=== PATIENT | male | born 1945 | race Caucasian/White ===

== ENCOUNTER 2022-05-05 05:21 | Inpatient (IN) | payer MEDICARE, OTHER ==
[2022-04-25 16:27] LABS: CLARITY,URINE CLEAR (Clear); COLOR,URINE YELLOW (Yellow); GLUCOSE, URINE 250 mg/dl (Neg); KETONES,URINE TRACE mg/dl (Neg); LEUKOCYTE ESTERASE ,URINE NEGATIVE (Neg); NITRITES, URINE NEGATIVE (Neg); OCCULT BLOOD,URINE NEGATIVE (Neg); PROTEIN,URINE NEGATIVE (Neg); UROBILINOGEN,URINE 0.2 E.U/dL (0.2-1.0)
[2022-04-25 16:27] LABS: BASOPHILS # (AUTO) 0.1 X10'3 (0-0.2); BASOPHILS % (AUTO) 1.2 % (0-1); EOSINOPHILS # (AUTO) 0.1 X10'3 (0-0.9); EOSINOPHILS % (AUTO) 1.5 % (0-6); LYMPHOCYTES # (AUTO) 2.6 X10'3 (1.1-4.8); LYMPHOCYTES % (AUTO) 31.9 % (21-51); MEAN CORPUSCULAR HEMOGLOBIN 33.7 PG (27.0-31.0); MEAN CORPUSCULAR HGB CONC 34.6 g/dL (33.0-36.5); MEAN CORPUSCULAR VOLUME 97.3 FL (78-98); MEAN PLATELET VOLUME 8.6 FL (7.4-10.4); MONOCYTES # (AUTO) 0.6 X10'3 (0-0.9); MONOCYTES % (AUTO) 7.8 % (2-12); NEUTROPHILS # (AUTO) 4.7 X10'3 (1.8-7.7); NEUTROPHILS % (AUTO) 57.6 % (42-75); PRE OP HEMATOCRIT 46.3 % (42.0-52.0); PRE OP PLATELET COUNT 211 X10'3 (140-440); RED BLOOD COUNT 4.76 X10'6 (4.70-6.10); RED CELL DISTRIBUTION WIDTH 13.4 % (11.5-14.5)
[2022-04-25 16:30] LABS: ALBUMIN 3.8 G/DL (3.4-5.0); ALBUMIN/GLOBULIN RATIO 0.9 (1.1-1.5); ALKALINE PHOSPHATASE 104 IU/L (46-116); BLOOD UREA NITROGEN 19 MG/DL (7-18); CALCIUM 10.4 MG/DL (8.5-10.1); CHLORIDE 103 MMOL/L (99-107); CREATININE 1.12 MG/DL (0.60-1.10); PRE OP ALT 54 U/L (30-65); PRE OP ANION GAP 10 (8-16); PRE OP AST 38 U/L (10-37); PRE OP BILIRUB, TOTAL 1.3 MG/DL (0.0-1.0); PRE OP GLUCOSE 163 MG/DL (70-104); PRE OP SODIUM 139 MMOL/L (135-145); TOTAL CARBON DIOXIDE 26.4 MMOL/L (24-32); TOTAL PROTEIN 7.9 G/DL (6.4-8.2); eGFR 63 ML/MIN
[2022-04-25 16:33] LABS: PRE OP POTASSIUM 4.1 MMOL/L (3.4-5.1)
[2022-04-25 16:39] LABS: UA COLLECTION TYPE CLN CATCH MIDSTREAM
[2022-05-05] VITALS (34 sets, daily range): BP systolic 105–143; BP diastolic 58–95
[~2022-05-05] VITALS: Ht 182.9 cm; Wt 110.7 kg
[~2022-05-05 05:21] MED LIST: ALOG6.252 PO; APIX5TAB3 PO; CARV-50 PO; CHOL10008 PO; ESCI20TA39 PO; FLO0.4C PO; GINKGO BILOBA PO; LEVO88TA2 PO; LORA10TA7 PO; MAGN400T39 PO; MECL-159 PO; METF500T PO; MULT-1085 PO; OMEG10006 PO; VITA-268 PO; ringers solution, lacted 1,000 ML IV SCH
[2022-05-05] MEDS ORDERED: ceFAZolin inj. 2,000 MG in dextrose 5%-water 100 ML IV ONE (05:30)
[2022-05-05] MEDS ORDERED: famotidine 20mg tablet PO ONE (05:30)
[2022-05-05] MEDS ORDERED: DOCUMENT DATE & TIME OF BETA-BLOCKER PO ONE (05:30)
[2022-05-05] MEDS ORDERED: LIDOcaine 1% (10mg/ml) 2ml vial ONE (05:59)
[2022-05-05] MEDS ORDERED: BUPIVAcaine/PF 2.5 mg/ml (0.25%) 30ml vial ONE (06:36)
[2022-05-05] MEDS ORDERED: bacitracin 15gm ointment TP ONE (06:36)
[2022-05-05] MEDS ORDERED: ROPIVAcaine 0.5% (5mg/ml) 30ml vial ONE (07:04)
[2022-05-05] MEDS ORDERED: fentaNYL/PF 50MCG/1 ML 2ML syringe ONE ×4 (07:08→13:21)
[2022-05-05] MEDS ORDERED: etomidate 2mg/ml inj. ONE ×2 (07:08→07:15)
[2022-05-05] MEDS ORDERED: dexamethasone sod phosphate 10mg/ml inj ONE (07:15)
[2022-05-05] MEDS ORDERED: hydrALAZINE 20mg/ml inj. IV PRN (07:15)
[2022-05-05] MEDS ORDERED: morphine 2 MG/ML inj. syringe IV PRN (07:15)
[2022-05-05] MEDS ORDERED: fentaNYL/PF 50MCG/1 ML 2ML syringe IV PRN ×2 (07:15)
[2022-05-05] MEDS ORDERED: labetalol 20mg/4ml (5mg/ml) syringe IV PRN (07:15)
[2022-05-05] MEDS ORDERED: ringers solution, lacted 1,000 ML IV SCH (07:15)
[2022-05-05] MEDS ORDERED: ondansetron/PF 4mg/2ml inj IV PRN ×2 (07:15→17:00)
[2022-05-05] MEDS ORDERED: morphine 4 MG/ML inj SYRINge IV PRN (07:15)
[2022-05-05] MEDS ORDERED: sevoflurane 250ml liquid IH ONE (07:15)
[2022-05-05] MEDS ORDERED: ondansetron/PF 4mg/2ml inj ONE (07:44)
[2022-05-05] MEDS ORDERED: acetaminophen 1,000mg/100ml IV 100 ML IV ONE (08:22)
--- NOTE | 2022-05-05 12:21 | NUR ---
Received from OR via [facility] IN STABLE CONDITION , accompanied by Anesthesiologist and ETL DATABASE DEVELOPER report given by ETL DATABASE DEVELOPER AND Anesthesiolgist. Addendum: 05/05/22 at 1348 by Minoo Borja RN Amended: Links added.
[2022-05-05] MEDS ORDERED: insulin regular, human 10 units/0.1 ml syringe IV ONE ×2 (12:40→14:00)
[2022-05-05] MEDS ORDERED: insulin regular, human U-100 3ml vial - multi-dose IV ONE (13:50)
--- NOTE | 2022-05-05 15:50 | NUR ---
DR. WELSH NOTIFIED OF PATIENTS BLOOD SUGAR. NO NEW ORDERES. Addendum: 05/05/22 at 1915 by Minoo Borja RN Amended: Links added.
[2022-05-05] MEDS ORDERED: naloxone 0.4 mg/ml inj IV PRN (17:00)
[2022-05-05] MEDS ORDERED: magnesium hydroxide 30ml (MOM) UD suspension PO PRN (17:00)
[2022-05-05] MEDS ORDERED: acetaminophen 325mg tablet PO PRN (17:00)
[2022-05-05] MEDS ORDERED: bisacodyl 10mg suppository rectal RC PRN (17:00)
[2022-05-05] MEDS ORDERED: diphenhydrAMINE 25mg capsule PO PRN ×2 (17:00)
--- NOTE | 2022-05-05 18:31 | NUR ---
PATIENT DISCHARGED FROM PACU IN STABLE CONDITION. PATIENT TRANSFERRED TO ROOM 4009A VIA BED WITH RN X2. BESIDE REPORT GIVEN. Addendum: 05/05/22 at 1908 by Minoo Borja RN Amended: Links added.
[2022-05-05] MEDS: apixaban 5mg tablet PO SCH (20:50)
[2022-05-05] MEDS: sennosides 8.6mg tablet PO SCH (20:50)
[2022-05-05] MEDS: potassium Cl 20mEq in NS 1,000 ML IV SCH (20:51)
[2022-05-05] MEDS ORDERED: dextrose 50%-water 50ml dispensing syringe IV PRN ×2 (21:35)
[2022-05-05] MEDS ORDERED: MESSAGE TO PHARMACY PO ONE (21:35)
[2022-05-05] MEDS ORDERED: glucagon, human recombinant 1mg kit SUBCUT PRN (21:35)
[2022-05-05] MEDS ORDERED: DEXTROSE 15 GM of carb/4 tabs (each vial/BOTTLE has 4 tablets) PO PRN ×2 (21:35)
[2022-05-05] MEDS: insulin Lispro (HumaLOG) vial - multi-dose SQ SCH (22:05)
[2022-05-05] MEDS: insulin glargine (Lantus) pen - multi-dose SQ SCH (22:09)
[2022-05-06] MEDS: ceFAZolin/D5W- 1GM premix 50 ML IV SCH ×2 (00:40→07:44)
[2022-05-06 02:00] VITALS: BP 121/71
[2022-05-06] MEDS: potassium Cl 20mEq in NS 1,000 ML IV SCH ×3 (05:54→17:00)
--- NOTE | 2022-05-06 06:28 | NUR ---
SKIP'D VERBAL REPORT FROM RAE AT PATIENTS BESIDE WHEN HE ARRIVED ON THE UNIT FROM RECOVERY ROOM. FREQUENT VITALS SET UP, RLE ELEVATED ON WEDGE AND ATTEMPTED TO PUT UP THE FOB UP BUT PATIENT ASKED ME TO NOT DO THAT. REPEATEDLY CHECKED ON PATIENT THROUGH OUT THE NIGHT TO CHECK HIS PAIN LEVEL, HAS DENIED ANY PAIN THROUGH THE NIGHT. DID NOT GET MUCH REST THROUGH THE NIGHT BUT CONT'S TO MAINTAIN 'I'M NOT HAVING ANY PAIN" VERBAL REPORT GIVEN TO PAN MILLER
[2022-05-06 07:00] VITALS: BP 121/68
[2022-05-06] MEDS: apixaban 5mg tablet PO SCH (07:44)
[2022-05-06] MEDS: insulin Lispro (HumaLOG) vial - multi-dose SQ SCH ×3 (08:36→19:32)
[2022-05-06 10:00] VITALS: BP 164/83
[2022-05-06 14:00] VITALS: BP 118/65
[2022-05-06] MEDS: HYDROcodone/acetaminophen 10/325mg tab PO PRN ×3 (14:12→21:07)
[2022-05-06 18:00] VITALS: BP 108/75
--- NOTE | 2022-05-06 19:14 | NUR ---
Patient in room ORTHO 4009. I have received report from PAN MILLER and had the opportunity to ask questions and assume patient care.
--- NOTE | 2022-05-06 20:07 | NUR ---
PATIENT REPEATEDLY ATTEMPTING TO VOID, STATES "I KNOW I HAVE TO PEE BUT NOTHINGS COMING OUT, AND I'M REALLY UNCOMFORTABLE". PT. BLADDER SCANNED FOR 1089ML. PLACED A CALL TO DR. CHIANG AND RC'D AN ORDER TO STRAIGHT CATH Q6HR PRN FOR AMT GREATER THAN 450. PATIENT STATED HAS A BIG PROSTATE, SO WILL USE A COUDE.
[2022-05-06] MEDS: sennosides 8.6mg tablet PO SCH (21:03)
[2022-05-06] MEDS: insulin glargine (Lantus) pen - multi-dose SQ SCH (21:03)
[2022-05-06 22:00] VITALS: BP 137/84
--- NOTE | 2022-05-06 22:07 | NUR ---
RESTING COMFORTABLY NOW. WAS STRAIGHT CATH'D FOR 1200ML AND PATIENT STATED "FEELS SO MUCH BETTER NOW". RT WAS HERE AND HAS SET UP CPAP FOR PATIENT'S USE ORDERED BUT DECLINED USE, "MAYBE I WILL USE IT LATER, I'M JUST SO TIRED RIGHT NOW". TOLD PATIENT I CAN HELP HIM WITH IT WHEN HE IS READY TO HAVE IT ON. CALL LIGHT IN REACH.
--- NOTE | 2022-05-06 22:30 | NUR ---
PATIENT WAS RESTING COMFORTABLY, THEN WOKE UP AND UP ON EDGE OF BED. STATED "I FEEL LIKE I REALLY NEED TO PEE AGAIN REAL BAD. BLADDER SCANNED FOR 650ML, INSERTED F/C WITH A 15FR. COUDE CATHETER URINE OUTPUT IS HIGH IN LESS THAN 3 HRS AND D/T ENLARGED PROSTATE AND HAVING TO CATH SO FREQUENTLY WANTING TO AVOID TRAUMA WELL INFECTION RISK FOR FREQUENT CATHING. TOLERATE PROCEDURE WELL, THOUGH DID MEET SOME RESISTANCE AT THE PROSTATE. CLEAR YELLOW URINE DRAINING INTO BAD AND IMMEDIATELY GOT OVER 700ML. PATIENT MUCH MORE COMFORTABLE NOW AND POSITIONED WITH RLE UP IN FOAM ELEVATOR. CALL LIGHT IN REACH.
[2022-05-07 06:00] VITALS: BP 120/67
--- NOTE | 2022-05-07 06:49 | NUR ---
Problems reprioritized. Patient report given, questions answered & plan of care reviewed with KWABENA MILLER.
[2022-05-07] MEDS: HYDROcodone/acetaminophen 10/325mg tab PO PRN ×4 (08:08→21:52)
[2022-05-07] MEDS: potassium Cl 20mEq in NS 1,000 ML IV SCH ×2 (08:30→09:00)
[2022-05-07] MEDS: insulin Lispro (HumaLOG) vial - multi-dose SQ SCH ×3 (08:38→18:54)
--- NOTE | 2022-05-07 09:42 | NUR ---
Diabetes consult: Pt w/ hx of DM A1c 7.3 per EMR. Written DM ed w/ RD contact info placed in pt chart. Addendum: 05/07/22 at [address] Amended: Links added.
[2022-05-07 10:00] VITALS: BP 103/67
[2022-05-07] MEDS ORDERED: OMEP20CA16 PO (10:10)
[2022-05-07] MEDS ORDERED: LEVO75TA7 PO (10:19)
[2022-05-07] MEDS ORDERED: meclizine 12.5mg tablet PO PRN (10:35)
[2022-05-07] MEDS: tamsulosin 0.4mg capsule PO SCH (12:45)
[2022-05-07] MEDS: levoTHYROXINE 75mcg tablet PO SCH (12:45)
[2022-05-07] MEDS: loratadine 10mg tablet PO SCH (12:45)
[2022-05-07 18:00] VITALS: BP 109/70
[2022-05-07] MEDS: apixaban 5mg tablet PO SCH ×2 (20:00→20:59)
[2022-05-07] MEDS: pantoprazole 40mg Tablet.DR PO SCH (20:59)
[2022-05-07] MEDS: carVEDilol 12.5mg tablet PO SCH (21:00)
[2022-05-07] MEDS: sennosides 8.6mg tablet PO SCH (21:00)
[2022-05-07] MEDS: insulin glargine (Lantus) pen - multi-dose SQ SCH (21:04)
[2022-05-07 22:00] VITALS: BP 129/71
--- NOTE | 2022-05-08 03:48 | NUR ---
F/C PLACED 05/06 AT 2230 AFTER PATIENT FAILED VOIDING TRIAL. NEGLECTED TO UPDATE THIS IN THE ORDERS, HAVE DONE SO NOW.
[2022-05-08 06:00] VITALS: BP 113/65
--- NOTE | 2022-05-08 06:14 | NUR ---
Problems reprioritized. Patient report given, questions answered & plan of care reviewed with ANGELA Duenas.
[2022-05-08] MEDS: apixaban 5mg tablet PO SCH ×4 (08:00→21:09)
[2022-05-08] MEDS: linagliptin 5mg tablet PO SCH (08:00)
[2022-05-08] MEDS: insulin Lispro (HumaLOG) vial - multi-dose SQ SCH ×2 (08:29→19:25)
[2022-05-08] MEDS: loratadine 10mg tablet PO SCH (08:33)
[2022-05-08] MEDS: tamsulosin 0.4mg capsule PO SCH (08:33)
[2022-05-08] MEDS: carVEDilol 12.5mg tablet PO SCH ×2 (08:34→21:09)
[2022-05-08] MEDS: levoTHYROXINE 75mcg tablet PO SCH (08:36)
[2022-05-08] MEDS: pantoprazole 40mg Tablet.DR PO SCH (08:36)
[2022-05-08] MEDS: OMEGA-3/DHA/EPA/FISH OIL 1 EACH CAPSULE.DR PO SCH (08:36)
[2022-05-08] MEDS: magnesium oxide 400mg tablet PO SCH (08:36)
[2022-05-08] MEDS: multivitamins, therapeutics tablet PO SCH (08:37)
[2022-05-08] MEDS: ESCITALOPRAM OXALATE 5 MG TABLET PO SCH (08:37)
[2022-05-08] MEDS: cholecalciferol (vitamin D3) 1,000 unit (25mcg) tablet PO SCH (08:48)
[2022-05-08] MEDS: vitamin B comp w/Vit. C tab 1 TAB TABLET PO SCH (08:48)
[2022-05-08 10:00] VITALS: BP 123/71
[2022-05-08] MEDS ORDERED: ERGO500041 PO (16:32)
[2022-05-08] MEDS ORDERED: HYDR-3973 PO (16:32)
[2022-05-08] MEDS ORDERED: METF750T46 PO (16:32)
[2022-05-08] MEDS ORDERED: MAGN420T PO (16:32)
[2022-05-08] MEDS ORDERED: CLOB15CR4 TOP (16:32)
[2022-05-08] MEDS ORDERED: ROSU10TA2 PO (16:32)
[2022-05-08 18:00] VITALS: BP 105/66
[2022-05-08] MEDS: sennosides 8.6mg tablet PO SCH (21:09)
[2022-05-08] MEDS: insulin glargine (Lantus) pen - multi-dose SQ SCH (21:15)
[2022-05-08 22:00] VITALS: BP 117/76
[2022-05-09 06:00] VITALS: BP 117/75
[2022-05-09] MEDS: ESCITALOPRAM OXALATE 5 MG TABLET PO SCH (09:29)
[2022-05-09] MEDS: vitamin B comp w/Vit. C tab 1 TAB TABLET PO SCH (09:30)
[2022-05-09] MEDS: cholecalciferol (vitamin D3) 1,000 unit (25mcg) tablet PO SCH (09:30)
[2022-05-09] MEDS: OMEGA-3/DHA/EPA/FISH OIL 1 EACH CAPSULE.DR PO SCH (09:30)
[2022-05-09] MEDS: carVEDilol 12.5mg tablet PO SCH ×2 (09:30→20:55)
[2022-05-09] MEDS: tamsulosin 0.4mg capsule PO SCH (09:30)
[2022-05-09] MEDS: magnesium oxide 400mg tablet PO SCH (09:31)
[2022-05-09] MEDS: levoTHYROXINE 75mcg tablet PO SCH (09:31)
[2022-05-09] MEDS: apixaban 5mg tablet PO SCH ×2 (09:31→20:55)
[2022-05-09] MEDS: loratadine 10mg tablet PO SCH (09:31)
[2022-05-09] MEDS: multivitamins, therapeutics tablet PO SCH (09:31)
[2022-05-09] MEDS: pantoprazole 40mg Tablet.DR PO SCH (09:31)
[2022-05-09] MEDS: linagliptin 5mg tablet PO SCH (09:37)
--- NOTE | 2022-05-09 09:58 | NUR ---
Initial: Pt admit for right ankle fracture, now s/p right triple arthrodesis and gastroc recession per physician note. Pt on a CHO controlled diet and eating well, documented with 75-100% PO intake throughout LOS meeting estimated nutrient needs. LBM 05/08 per I&O. Receiving routine bowel care. No nutrition intervention implemented at this time. Will continue to follow. Recommendations: 1) Continue CHO controlled diet 2) Routine bowel care 3) Weekly scaled weights Addendum: 05/09/22 at [address] Amended: Links added.
[2022-05-09 10:00] VITALS: BP 124/68
[2022-05-09 18:00] VITALS: BP 142/61
[2022-05-09] MEDS: sennosides 8.6mg tablet PO SCH (20:54)
[2022-05-09] MEDS: insulin glargine (Lantus) pen - multi-dose SQ SCH (21:00)
[2022-05-09 22:00] VITALS: BP 123/65
[2022-05-10 06:00] VITALS: BP 100/49
--- NOTE | 2022-05-10 06:20 | NUR ---
Patient in room [facility]TH[facility] 4009. I have received report from Lauren and had the opportunity to ask questions and assume patient care.
[2022-05-10] MEDS: insulin Lispro (HumaLOG) vial - multi-dose SQ SCH ×3 (08:22→18:52)
[2022-05-10] MEDS: loratadine 10mg tablet PO SCH (08:25)
[2022-05-10] MEDS: carVEDilol 12.5mg tablet PO SCH ×2 (08:25→20:37)
[2022-05-10] MEDS: tamsulosin 0.4mg capsule PO SCH (08:26)
[2022-05-10] MEDS: magnesium oxide 400mg tablet PO SCH (08:26)
[2022-05-10] MEDS: ESCITALOPRAM OXALATE 5 MG TABLET PO SCH (08:26)
[2022-05-10] MEDS: OMEGA-3/DHA/EPA/FISH OIL 1 EACH CAPSULE.DR PO SCH (08:26)
[2022-05-10] MEDS: apixaban 5mg tablet PO SCH ×2 (08:26→20:37)
[2022-05-10] MEDS: multivitamins, therapeutics tablet PO SCH (08:27)
[2022-05-10] MEDS: pantoprazole 40mg Tablet.DR PO SCH (08:27)
[2022-05-10] MEDS: levoTHYROXINE 75mcg tablet PO SCH (08:27)
[2022-05-10] MEDS: vitamin B comp w/Vit. C tab 1 TAB TABLET PO SCH (08:27)
[2022-05-10] MEDS: cholecalciferol (vitamin D3) 1,000 unit (25mcg) tablet PO SCH (08:30)
[2022-05-10] MEDS: linagliptin 5mg tablet PO SCH (08:30)
[2022-05-10 10:00] VITALS: BP 98/46
[2022-05-10] MEDS: HYDROcodone/acetaminophen 10/325mg tab PO PRN (10:00)
[2022-05-10 13:24] LABS: BASOPHILS # (AUTO) 0.1 X10'3 (0-0.2); BASOPHILS % (AUTO) 0.5 % (0-1); EOSINOPHILS # (AUTO) 0.2 X10'3 (0-0.9); EOSINOPHILS % (AUTO) 1.8 % (0-6); HEMATOCRIT 37.1 % (42.0-52.0); HEMOGLOBIN 12.6 g/dl (14.0-17.9); LYMPHOCYTES # (AUTO) 2.3 X10'3 (1.1-4.8); LYMPHOCYTES % (AUTO) 23.3 % (21-51); MEAN CORPUSCULAR HEMOGLOBIN 32.6 PG (27.0-31.0); MEAN CORPUSCULAR HGB CONC 33.8 g/dL (33.0-36.5); MEAN CORPUSCULAR VOLUME 96.6 FL (78-98); MEAN PLATELET VOLUME 8.5 FL (7.4-10.4); MONOCYTES # (AUTO) 1.2 X10'3 (0-0.9); MONOCYTES % (AUTO) 11.5 % (2-12); NEUTROPHILS # (AUTO) 6.3 X10'3 (1.8-7.7); NEUTROPHILS % (AUTO) 62.9 % (42-75); PLATELET COUNT 253 X10'3 (140-440); RED BLOOD COUNT 3.85 X10'6 (4.70-6.10); RED CELL DISTRIBUTION WIDTH 13.2 % (11.5-14.5); WHITE BLOOD COUNT 10.1 X10'3 (4.5-11.0)
[2022-05-10 13:39] LABS: ALANINE AMINOTRANSFERASE 34 U/L (12-78); ALBUMIN/GLOBULIN RATIO 0.8 (1.1-1.5); ALKALINE PHOSPHATASE 121 IU/L (46-116); ANION GAP 7 (8-16); ASPARTATE AMINO TRANSFERASE 31 U/L (10-37); BILIRUBIN,TOTAL 1.2 MG/DL (0.1-1.0); BLOOD UREA NITROGEN 16 MG/DL (7-18); BUN/CREATININE RATIO 17.2 (5.4-32.0); CALCIUM 10.2 MG/DL (8.5-10.1); CHLORIDE 98 MMOL/L (99-107); CREATININE 0.93 MG/DL (0.60-1.10); GLUCOSE 187 MG/DL (70-104); POTASSIUM 4.2 MMOL/L (3.5-5.1); SODIUM 130 MMOL/L (135-145); TOTAL CARBON DIOXIDE 24.6 MMOL/L (24-32); eGFR 78 ML/MIN
[2022-05-10 18:00] VITALS: BP 120/75
--- NOTE | 2022-05-10 18:25 | NUR ---
Problems reprioritized. Patient report given, questions answered & plan of care reviewed with Lauren.
[2022-05-10] MEDS: sennosides 8.6mg tablet PO SCH (20:38)
[2022-05-10] MEDS: insulin glargine (Lantus) pen - multi-dose SQ SCH (20:44)
[2022-05-10 22:00] VITALS: BP 117/66
--- NOTE | 2022-05-11 06:15 | NUR ---
Patient in room [facility]TH[facility] 4009. I have received report from Lauren and had the opportunity to ask questions and assume patient care.
[2022-05-11 06:23] LABS: BASOPHILS # (AUTO) 0.1 X10'3 (0-0.2); BASOPHILS % (AUTO) 0.7 % (0-1); EOSINOPHILS # (AUTO) 0.2 X10'3 (0-0.9); EOSINOPHILS % (AUTO) 2.1 % (0-6); HEMATOCRIT 33.8 % (42.0-52.0); HEMOGLOBIN 11.8 g/dl (14.0-17.9); LYMPHOCYTES # (AUTO) 2.1 X10'3 (1.1-4.8); LYMPHOCYTES % (AUTO) 27.6 % (21-51); MEAN CORPUSCULAR HEMOGLOBIN 33.5 PG (27.0-31.0); MEAN CORPUSCULAR HGB CONC 34.8 g/dL (33.0-36.5); MEAN CORPUSCULAR VOLUME 96.2 FL (78-98); MEAN PLATELET VOLUME 8.5 FL (7.4-10.4); MONOCYTES # (AUTO) 0.9 X10'3 (0-0.9); MONOCYTES % (AUTO) 11.1 % (2-12); NEUTROPHILS # (AUTO) 4.5 X10'3 (1.8-7.7); NEUTROPHILS % (AUTO) 58.5 % (42-75); PLATELET COUNT 218 X10'3 (140-440); RED BLOOD COUNT 3.51 X10'6 (4.70-6.10); RED CELL DISTRIBUTION WIDTH 13.2 % (11.5-14.5); WHITE BLOOD COUNT 7.8 X10'3 (4.5-11.0)
[2022-05-11 06:26] VITALS: BP 120/73
[2022-05-11 06:26] LABS: ALBUMIN 2.6 G/DL (3.4-5.0); ANION GAP 9 (8-16); BLOOD UREA NITROGEN 15 MG/DL (7-18); CALCIUM 9.8 MG/DL (8.5-10.1); CHLORIDE 98 MMOL/L (99-107); CREATININE 0.79 MG/DL (0.60-1.10); GLUCOSE 147 MG/DL (70-104); POTASSIUM 3.8 MMOL/L (3.5-5.1); SODIUM 130 MMOL/L (135-145); TOTAL CARBON DIOXIDE 23.3 MMOL/L (24-32); eGFR > 90 ML/MIN
[2022-05-11] MEDS: insulin Lispro (HumaLOG) vial - multi-dose SQ SCH ×3 (08:38→18:56)
[2022-05-11] MEDS: loratadine 10mg tablet PO SCH (08:44)
[2022-05-11] MEDS: carVEDilol 12.5mg tablet PO SCH ×2 (08:45→21:31)
[2022-05-11] MEDS: OMEGA-3/DHA/EPA/FISH OIL 1 EACH CAPSULE.DR PO SCH (08:45)
[2022-05-11] MEDS: apixaban 5mg tablet PO SCH ×2 (08:45→21:30)
[2022-05-11] MEDS: magnesium oxide 400mg tablet PO SCH (08:45)
[2022-05-11] MEDS: tamsulosin 0.4mg capsule PO SCH (08:45)
[2022-05-11] MEDS: pantoprazole 40mg Tablet.DR PO SCH (08:45)
[2022-05-11] MEDS: linagliptin 5mg tablet PO SCH (08:46)
[2022-05-11] MEDS: vitamin B comp w/Vit. C tab 1 TAB TABLET PO SCH (08:46)
[2022-05-11] MEDS: levoTHYROXINE 75mcg tablet PO SCH (08:46)
[2022-05-11] MEDS: multivitamins, therapeutics tablet PO SCH (08:46)
[2022-05-11] MEDS: ESCITALOPRAM OXALATE 5 MG TABLET PO SCH (08:57)
[2022-05-11 10:00] VITALS: BP 118/65
[2022-05-11 16:06] LABS: MAGNESIUM 1.3 MG/DL (1.5-2.4)
[2022-05-11 18:00] VITALS: BP 113/63
[2022-05-11] MEDS: lactose-reduced food (Ensure Enlive) - 237ml bottle PO SCH (18:26)
--- NOTE | 2022-05-11 18:36 | NUR ---
Patient in room [facility]TH[facility] 4009. I have received report from Maddison MLILER and had the opportunity to ask questions and assume patient care.
--- NOTE | 2022-05-11 18:43 | NUR ---
Problems reprioritized. Patient report given, questions answered & plan of care reviewed with
[2022-05-11] MEDS: sennosides 8.6mg tablet PO SCH (21:00)
[2022-05-11] MEDS: insulin glargine (Lantus) pen - multi-dose SQ SCH (21:08)
--- NOTE | 2022-05-11 21:51 | NUR ---
Pt stating that he feels like he has to pee. Bladder scan shows 771mls. Will straight cath per MD orders.
[2022-05-11 22:00] VITALS: BP 117/72
[2022-05-12 06:00] VITALS: BP 115/76
--- NOTE | 2022-05-12 06:10 | NUR ---
Patient in room [facility]TH[facility] 4009. I have received report from Aliyah and had the opportunity to ask questions and assume patient care.
[2022-05-12 06:36] LABS: BASOPHILS % (AUTO) 0.4 % (0-1); EOSINOPHILS # (AUTO) 0.2 X10'3 (0-0.9); EOSINOPHILS % (AUTO) 1.8 % (0-6); HEMATOCRIT 34.7 % (42.0-52.0); LYMPHOCYTES % (AUTO) 24.6 % (21-51); MEAN CORPUSCULAR HEMOGLOBIN 33.3 PG (27.0-31.0); MEAN CORPUSCULAR HGB CONC 34.6 g/dL (33.0-36.5); MEAN PLATELET VOLUME 8.5 FL (7.4-10.4); MONOCYTES # (AUTO) 0.9 X10'3 (0-0.9); MONOCYTES % (AUTO) 10.8 % (2-12); NEUTROPHILS # (AUTO) 5.2 X10'3 (1.8-7.7); NEUTROPHILS % (AUTO) 62.4 % (42-75); PLATELET COUNT 247 X10'3 (140-440); RED BLOOD COUNT 3.61 X10'6 (4.70-6.10); RED CELL DISTRIBUTION WIDTH 13.5 % (11.5-14.5); WHITE BLOOD COUNT 8.3 X10'3 (4.5-11.0)
--- NOTE | 2022-05-12 06:37 | NUR ---
Problems reprioritized. Patient report given, questions answered & plan of care reviewed with Maddison MILLER.
[2022-05-12 06:53] LABS: ALBUMIN 2.8 G/DL (3.4-5.0); ANION GAP 9 (8-16); BLOOD UREA NITROGEN 13 MG/DL (7-18); BUN/CREATININE RATIO 14.8 (5.4-32.0); CALCIUM 10.1 MG/DL (8.5-10.1); CHLORIDE 99 MMOL/L (99-107); CREATININE 0.88 MG/DL (0.60-1.10); GLUCOSE 151 MG/DL (70-104); POTASSIUM 4.2 MMOL/L (3.5-5.1); SODIUM 133 MMOL/L (135-145); TOTAL CARBON DIOXIDE 25.5 MMOL/L (24-32); eGFR 84 ML/MIN
[2022-05-12] MEDS: apixaban 5mg tablet PO SCH ×2 (07:46→20:59)
[2022-05-12] MEDS: OMEGA-3/DHA/EPA/FISH OIL 1 EACH CAPSULE.DR PO SCH (07:46)
[2022-05-12] MEDS: loratadine 10mg tablet PO SCH (07:46)
[2022-05-12] MEDS: lactose-reduced food (Ensure Enlive) - 237ml bottle PO SCH ×3 (07:46→18:13)
[2022-05-12] MEDS: levoTHYROXINE 75mcg tablet PO SCH (07:47)
[2022-05-12] MEDS: multivitamins, therapeutics tablet PO SCH (07:47)
[2022-05-12] MEDS: linagliptin 5mg tablet PO SCH (07:47)
[2022-05-12] MEDS: tamsulosin 0.4mg capsule PO SCH (07:47)
[2022-05-12] MEDS: vitamin B comp w/Vit. C tab 1 TAB TABLET PO SCH (07:47)
[2022-05-12] MEDS: pantoprazole 40mg Tablet.DR PO SCH (07:47)
[2022-05-12] MEDS: magnesium oxide 400mg tablet PO SCH (07:47)
[2022-05-12] MEDS: carVEDilol 12.5mg tablet PO SCH ×2 (07:47→20:59)
[2022-05-12] MEDS: cholecalciferol (vitamin D3) 1,000 unit (25mcg) tablet PO SCH (07:48)
[2022-05-12] MEDS: insulin Lispro (HumaLOG) vial - multi-dose SQ SCH ×2 (08:24→19:11)
[2022-05-12] MEDS: ESCITALOPRAM OXALATE 5 MG TABLET PO SCH (08:27)
[2022-05-12 10:00] VITALS: BP 120/64
[2022-05-12] MEDS: HYDROcodone/acetaminophen 10/325mg tab PO PRN (15:15)
[2022-05-12 18:00] VITALS: BP 103/65
--- NOTE | 2022-05-12 18:15 | NUR ---
Patient in room [facility]TH[facility] 4009. I have received report from ANGELA Washburn and had the opportunity to ask questions and assume patient care.
[2022-05-12] MEDS ORDERED: magnesium Cl slow-release 64mg tablet PO ONE (20:00)
[2022-05-12] MEDS: sennosides 8.6mg tablet PO SCH (21:00)
[2022-05-12] MEDS: insulin glargine (Lantus) pen - multi-dose SQ SCH (21:04)
[2022-05-12 22:00] VITALS: BP 104/64
[2022-05-13 05:00] VITALS: BP 109/74
--- NOTE | 2022-05-13 06:25 | NUR ---
Problems reprioritized. Patient report given, questions answered & plan of care reviewed with ANGELA Washburn.
[2022-05-13 06:42] LABS: ALBUMIN 2.7 G/DL (3.4-5.0); ANION GAP 6 (8-16); BASOPHILS % (AUTO) 0.6 % (0-1); BLOOD UREA NITROGEN 14 MG/DL (7-18); BUN/CREATININE RATIO 16.5 (5.4-32.0); CHLORIDE 97 MMOL/L (99-107); CREATININE 0.85 MG/DL (0.60-1.10); EOSINOPHILS # (AUTO) 0.2 X10'3 (0-0.9); EOSINOPHILS % (AUTO) 2.2 % (0-6); GLUCOSE 137 MG/DL (70-104); HEMATOCRIT 34.6 % (42.0-52.0); HEMOGLOBIN 11.9 g/dl (14.0-17.9); LYMPHOCYTES # (AUTO) 2.2 X10'3 (1.1-4.8); LYMPHOCYTES % (AUTO) 29.2 % (21-51); MEAN CORPUSCULAR HEMOGLOBIN 33.1 PG (27.0-31.0); MEAN CORPUSCULAR HGB CONC 34.5 g/dL (33.0-36.5); MEAN CORPUSCULAR VOLUME 95.8 FL (78-98); MEAN PLATELET VOLUME 8.4 FL (7.4-10.4); MONOCYTES # (AUTO) 0.9 X10'3 (0-0.9); MONOCYTES % (AUTO) 11.8 % (2-12); NEUTROPHILS # (AUTO) 4.2 X10'3 (1.8-7.7); NEUTROPHILS % (AUTO) 56.2 % (42-75); PLATELET COUNT 244 X10'3 (140-440); POTASSIUM 3.9 MMOL/L (3.5-5.1); RED BLOOD COUNT 3.61 X10'6 (4.70-6.10); RED CELL DISTRIBUTION WIDTH 13.3 % (11.5-14.5); SODIUM 130 MMOL/L (135-145); TOTAL CARBON DIOXIDE 26.6 MMOL/L (24-32); WHITE BLOOD COUNT 7.5 X10'3 (4.5-11.0); eGFR 87 ML/MIN
[2022-05-13 07:23] LABS: PLATELET ESTIMATE NORMAL; TOTAL CELLS COUNTED 100
[2022-05-13] MEDS: lactose-reduced food (Ensure Enlive) - 237ml bottle PO SCH ×3 (08:00→18:03)
[2022-05-13] MEDS: insulin Lispro (HumaLOG) vial - multi-dose SQ SCH ×3 (08:49→19:08)
[2022-05-13] MEDS: pantoprazole 40mg Tablet.DR PO SCH (08:55)
[2022-05-13] MEDS: OMEGA-3/DHA/EPA/FISH OIL 1 EACH CAPSULE.DR PO SCH (08:55)
[2022-05-13] MEDS: tamsulosin 0.4mg capsule PO SCH (08:55)
[2022-05-13] MEDS: carVEDilol 12.5mg tablet PO SCH ×2 (08:55→20:34)
[2022-05-13] MEDS: vitamin B comp w/Vit. C tab 1 TAB TABLET PO SCH (08:56)
[2022-05-13] MEDS: multivitamins, therapeutics tablet PO SCH (08:56)
[2022-05-13] MEDS: linagliptin 5mg tablet PO SCH (08:56)
[2022-05-13] MEDS: loratadine 10mg tablet PO SCH (08:56)
[2022-05-13] MEDS: magnesium oxide 400mg tablet PO SCH (08:56)
[2022-05-13] MEDS: ESCITALOPRAM OXALATE 5 MG TABLET PO SCH (08:56)
[2022-05-13] MEDS: cholecalciferol (vitamin D3) 1,000 unit (25mcg) tablet PO SCH (08:56)
[2022-05-13] MEDS: levoTHYROXINE 75mcg tablet PO SCH (08:56)
[2022-05-13] MEDS: apixaban 5mg tablet PO SCH ×2 (08:57→20:34)
[2022-05-13 10:00] VITALS: BP 107/68
[2022-05-13 18:00] VITALS: BP 116/75
--- NOTE | 2022-05-13 18:40 | NUR ---
Patient in room [facility]TH[facility] 4009. I have received report from ANGELA Washburn and had the opportunity to ask questions and assume patient care.
--- NOTE | 2022-05-13 18:44 | NUR ---
Report given to Natalie Rn, Pt ate dinner and resting well a this time.
[2022-05-13] MEDS: sennosides 8.6mg tablet PO SCH (20:34)
[2022-05-13] MEDS: insulin glargine (Lantus) pen - multi-dose SQ SCH (21:18)
[2022-05-13 22:00] VITALS: BP 109/63
[2022-05-14 06:00] VITALS: BP 126/72
--- NOTE | 2022-05-14 06:18 | NUR ---
Problems reprioritized. Patient report given, questions answered & plan of care reviewed with ANGELA Washburn.
[2022-05-14 06:27] LABS: BASOPHILS # (AUTO) 0.1 X10'3 (0-0.2); BASOPHILS % (AUTO) 0.7 % (0-1); EOSINOPHILS # (AUTO) 0.1 X10'3 (0-0.9); EOSINOPHILS % (AUTO) 1.7 % (0-6); HEMATOCRIT 33.4 % (42.0-52.0); HEMOGLOBIN 11.8 g/dl (14.0-17.9); LYMPHOCYTES # (AUTO) 2.1 X10'3 (1.1-4.8); LYMPHOCYTES % (AUTO) 27.7 % (21-51); MEAN CORPUSCULAR HEMOGLOBIN 33.5 PG (27.0-31.0); MEAN CORPUSCULAR HGB CONC 35.3 g/dL (33.0-36.5); MEAN CORPUSCULAR VOLUME 95.2 FL (78-98); MEAN PLATELET VOLUME 8.5 FL (7.4-10.4); MONOCYTES # (AUTO) 0.9 X10'3 (0-0.9); MONOCYTES % (AUTO) 11.3 % (2-12); NEUTROPHILS # (AUTO) 4.4 X10'3 (1.8-7.7); NEUTROPHILS % (AUTO) 58.6 % (42-75); PLATELET COUNT 242 X10'3 (140-440); RED BLOOD COUNT 3.51 X10'6 (4.70-6.10); WHITE BLOOD COUNT 7.6 X10'3 (4.5-11.0)
[2022-05-14 07:20] LABS: PLATELET ESTIMATE NORMAL; POLYCHROMASIA FEW; TOTAL CELLS COUNTED 100
[2022-05-14 07:40] LABS: ALBUMIN 2.7 G/DL (3.4-5.0); ANION GAP 10 (8-16); BLOOD UREA NITROGEN 14 MG/DL (7-18); BUN/CREATININE RATIO 15.2 (5.4-32.0); CALCIUM 10.3 MG/DL (8.5-10.1); CHLORIDE 97 MMOL/L (99-107); CREATININE 0.92 MG/DL (0.60-1.10); GLUCOSE 137 MG/DL (70-104); POTASSIUM 3.8 MMOL/L (3.5-5.1); SODIUM 130 MMOL/L (135-145); TOTAL CARBON DIOXIDE 23.3 MMOL/L (24-32); eGFR 79 ML/MIN
[2022-05-14] MEDS: lactose-reduced food (Ensure Enlive) - 237ml bottle PO SCH ×3 (08:00→18:34)
[2022-05-14] MEDS: insulin Lispro (HumaLOG) vial - multi-dose SQ SCH ×4 (08:31→19:16)
[2022-05-14] MEDS: apixaban 5mg tablet PO SCH ×2 (08:32→20:21)
[2022-05-14] MEDS: pantoprazole 40mg Tablet.DR PO SCH (08:32)
[2022-05-14] MEDS: linagliptin 5mg tablet PO SCH (08:33)
[2022-05-14] MEDS: ESCITALOPRAM OXALATE 5 MG TABLET PO SCH (08:33)
[2022-05-14] MEDS: multivitamins, therapeutics tablet PO SCH (08:33)
[2022-05-14] MEDS: vitamin B comp w/Vit. C tab 1 TAB TABLET PO SCH (08:33)
[2022-05-14] MEDS: magnesium oxide 400mg tablet PO SCH (08:34)
[2022-05-14] MEDS: tamsulosin 0.4mg capsule PO SCH (08:34)
[2022-05-14] MEDS: levoTHYROXINE 75mcg tablet PO SCH (08:34)
[2022-05-14] MEDS: OMEGA-3/DHA/EPA/FISH OIL 1 EACH CAPSULE.DR PO SCH (08:34)
[2022-05-14] MEDS: loratadine 10mg tablet PO SCH (08:34)
[2022-05-14] MEDS: sodium chloride 1gm tablet PO SCH (08:35)
[2022-05-14] MEDS: carVEDilol 12.5mg tablet PO SCH ×2 (08:35→20:22)
[2022-05-14] MEDS: cholecalciferol (vitamin D3) 1,000 unit (25mcg) tablet PO SCH (08:35)
[2022-05-14 10:08] VITALS: BP 96/66
--- NOTE | 2022-05-14 14:51 | NUR ---
Reassessment: Pt PO ~56% avg carb controlled meals w/ Ensure Enlive TIDWM added per PA post-op though mostly 0%/refusing documented per EMR; partially meeting needs. Serum Na 130 receiving daily NS PO per EMR. Pt seen by RD at bedside; reports requests Ensures actually drinking them late at night or between meals sometimes. Pt does report decreased appetite typical for him in hospital though no further food preferences outside disliking chicken that isn't deep fried; dietary notified. RD encouraged pt to contact dietitian's office if further questions/concerns. LBM 05/13. Will continue to monitor. Recommendations: 1) Continue CHO controlled diet 2) Ensure Enlive TIDWM per PA/pt; encourage meals/ONS intake 3) Routine bowel care 4) Weekly scaled weights Addendum: 05/14/22 at [address] Amended: Links added.
[2022-05-14 18:00] VITALS: BP 110/59
--- NOTE | 2022-05-14 18:35 | NUR ---
Patient in room [facility]TH[facility] 4009. I have received report from ANGELA Washburn and had the opportunity to ask questions and assume patient care.
--- NOTE | 2022-05-14 18:57 | NUR ---
Report given to Barbara MILLER, patient is resting comfortably, finished dinner and watching tv
[2022-05-14 20:15] VITALS: BP 124/57
[2022-05-14] MEDS: sennosides 8.6mg tablet PO SCH (20:21)
[2022-05-14] MEDS: insulin glargine (Lantus) pen - multi-dose SQ SCH (21:30)
[2022-05-14 22:00] VITALS: BP 127/64
--- NOTE | 2022-05-15 03:51 | NUR ---
AGREE WITH NITRIC ACID CONCENTRATOR OPERATOR PHYSICAL ASSESSMENT CHARTED
[2022-05-15 06:00] VITALS: BP 89/68
[2022-05-15 06:41] LABS: BASOPHILS % (AUTO) 0.6 % (0-1); EOSINOPHILS # (AUTO) 0.1 X10'3 (0-0.9); EOSINOPHILS % (AUTO) 1.5 % (0-6); HEMATOCRIT 34.7 % (42.0-52.0); LYMPHOCYTES # (AUTO) 1.9 X10'3 (1.1-4.8); LYMPHOCYTES % (AUTO) 22.2 % (21-51); MEAN CORPUSCULAR HEMOGLOBIN 33.2 PG (27.0-31.0); MEAN CORPUSCULAR HGB CONC 34.7 g/dL (33.0-36.5); MEAN CORPUSCULAR VOLUME 95.5 FL (78-98); MEAN PLATELET VOLUME 8.2 FL (7.4-10.4); MONOCYTES # (AUTO) 0.9 X10'3 (0-0.9); MONOCYTES % (AUTO) 10.4 % (2-12); NEUTROPHILS # (AUTO) 5.6 X10'3 (1.8-7.7); NEUTROPHILS % (AUTO) 65.3 % (42-75); PLATELET COUNT 257 X10'3 (140-440); RED BLOOD COUNT 3.63 X10'6 (4.70-6.10); RED CELL DISTRIBUTION WIDTH 13.2 % (11.5-14.5); WHITE BLOOD COUNT 8.6 X10'3 (4.5-11.0)
--- NOTE | 2022-05-15 06:44 | NUR ---
Problems reprioritized. Patient report given, questions answered & plan of care reviewed with ANGELA Mederos.
--- NOTE | 2022-05-15 06:52 | NUR ---
Patient in room ORTHO 4009. I have received report from ANGELA Jimenez and had the opportunity to ask questions and assume patient care.
[2022-05-15 07:12] LABS: ALBUMIN 2.8 G/DL (3.4-5.0); ANION GAP 10 (8-16); BLOOD UREA NITROGEN 14 MG/DL (7-18); BUN/CREATININE RATIO 16.3 (5.4-32.0); CALCIUM 10.3 MG/DL (8.5-10.1); CHLORIDE 96 MMOL/L (99-107); CREATININE 0.86 MG/DL (0.60-1.10); GLUCOSE 135 MG/DL (70-104); POTASSIUM 4.1 MMOL/L (3.5-5.1); SODIUM 131 MMOL/L (135-145); TOTAL CARBON DIOXIDE 24.8 MMOL/L (24-32); eGFR 86 ML/MIN
[2022-05-15] MEDS: lactose-reduced food (Ensure Enlive) - 237ml bottle PO SCH ×3 (08:00→18:20)
[2022-05-15] MEDS: cholecalciferol (vitamin D3) 1,000 unit (25mcg) tablet PO SCH (08:32)
[2022-05-15] MEDS: apixaban 5mg tablet PO SCH ×2 (08:32→21:29)
[2022-05-15] MEDS: carVEDilol 12.5mg tablet PO SCH ×2 (08:32→21:29)
[2022-05-15] MEDS: vitamin B comp w/Vit. C tab 1 TAB TABLET PO SCH (08:32)
[2022-05-15] MEDS: ESCITALOPRAM OXALATE 5 MG TABLET PO SCH (08:33)
[2022-05-15] MEDS: tamsulosin 0.4mg capsule PO SCH (08:33)
[2022-05-15] MEDS: levoTHYROXINE 75mcg tablet PO SCH (08:33)
[2022-05-15] MEDS: sodium chloride 1gm tablet PO SCH (08:33)
[2022-05-15] MEDS: linagliptin 5mg tablet PO SCH (08:33)
[2022-05-15] MEDS: pantoprazole 40mg Tablet.DR PO SCH (08:35)
[2022-05-15] MEDS: OMEGA-3/DHA/EPA/FISH OIL 1 EACH CAPSULE.DR PO SCH (08:35)
[2022-05-15] MEDS: magnesium oxide 400mg tablet PO SCH (08:35)
[2022-05-15] MEDS: multivitamins, therapeutics tablet PO SCH (08:35)
[2022-05-15] MEDS: loratadine 10mg tablet PO SCH (08:35)
[2022-05-15] MEDS: insulin Lispro (HumaLOG) vial - multi-dose SQ SCH ×3 (08:42→18:41)
[2022-05-15 10:00] VITALS: BP 114/63
[2022-05-15 18:13] VITALS: BP 122/72
--- NOTE | 2022-05-15 18:26 | NUR ---
Problems reprioritized. Patient report given, questions answered & plan of care reviewed with ANGELA Driscoll.
[2022-05-15] MEDS: insulin glargine (Lantus) pen - multi-dose SQ SCH (21:28)
[2022-05-15] MEDS: sennosides 8.6mg tablet PO SCH (21:29)
[2022-05-15 22:00] VITALS: BP 126/72
[2022-05-16 06:00] VITALS: BP 117/70
[2022-05-16] MEDS: lactose-reduced food (Ensure Enlive) - 237ml bottle PO SCH (08:00)
[2022-05-16 10:00] VITALS: BP 106/73
[2022-05-16] MEDS: ESCITALOPRAM OXALATE 5 MG TABLET PO SCH (10:29)
[2022-05-16] MEDS: pantoprazole 40mg Tablet.DR PO SCH (10:30)
[2022-05-16] MEDS: cholecalciferol (vitamin D3) 1,000 unit (25mcg) tablet PO SCH (10:30)
[2022-05-16] MEDS: multivitamins, therapeutics tablet PO SCH (10:30)
[2022-05-16] MEDS: tamsulosin 0.4mg capsule PO SCH (10:30)
[2022-05-16] MEDS: linagliptin 5mg tablet PO SCH (10:30)
[2022-05-16] MEDS: OMEGA-3/DHA/EPA/FISH OIL 1 EACH CAPSULE.DR PO SCH (10:30)
[2022-05-16] MEDS: vitamin B comp w/Vit. C tab 1 TAB TABLET PO SCH (10:30)
[2022-05-16] MEDS: apixaban 5mg tablet PO SCH (10:30)
[2022-05-16] MEDS: carVEDilol 12.5mg tablet PO SCH (10:30)
[2022-05-16] MEDS: levoTHYROXINE 75mcg tablet PO SCH (10:31)
[2022-05-16] MEDS: loratadine 10mg tablet PO SCH (10:31)
[2022-05-16] MEDS: magnesium oxide 400mg tablet PO SCH (10:45)
[2022-05-16] MEDS: sodium chloride 1gm tablet PO SCH (10:45)
--- NOTE | 2022-05-16 14:04 | NUR ---
Report was given to Juanis MILLER at [facility]
--- NOTE | 2022-05-16 14:48 | NUR ---
Patient just left his room. [facility] staff came to pick him up. Patient was transferred to the wheelchair and transported to [place]. All his belongings were sent with patient.
== END 2022-05-16 14:42 | DRG 501 ==
LOC: PAS IN 05:21 → ORTHO 4S 18:49
PROVIDERS: ADMIT Podiatrist Foot & Ankle Surgery; ATTEND Podiatrist Foot & Ankle Surgery
PROC: 0SGH0JZ Fusion of Right Tarsal Joint with Synthetic Substitute, Open Approach (ICD-10-PCS; 2022-05-05)
PROC: 0SGH0JZ Fusion of Right Tarsal Joint with Synthetic Substitute, Open Approach (ICD-10-PCS; 2022-05-05)
PROC: 3E0T33Z Introduction of Anti-inflammatory into Peripheral Nerves and Plexi, Percutaneous Approach (ICD-10-PCS; 2022-05-05)
PROC: 3E0T3BZ Introduction of Anesthetic Agent into Peripheral Nerves and Plexi, Percutaneous Approach (ICD-10-PCS; 2022-05-05)
PROC: 0MQQ0ZZ Repair Right Ankle Bursa and Ligament, Open Approach (ICD-10-PCS; 2022-05-05)
PROC: 0LSN0ZZ Reposition Right Lower Leg Tendon, Open Approach (ICD-10-PCS; 2022-05-05)
PROC: 0SGH0JZ Fusion of Right Tarsal Joint with Synthetic Substitute, Open Approach (ICD-10-PCS; principal; 2022-05-05 07:15)
DX: S82.891A Other fracture of right lower leg, initial encounter for closed fracture (principal); E87.1 Hypo-osmolality and hyponatremia; I13.0 Hypertensive heart and chronic kidney disease with heart failure and stage 1 through stage 4 chronic kidney disease, or unspecified chronic kidney disease; M19.071 Primary osteoarthritis, right ankle and foot; I50.9 Heart failure, unspecified; E66.01 Morbid (severe) obesity due to excess calories; K21.9 Gastro-esophageal reflux disease without esophagitis; E11.22 Type 2 diabetes mellitus with diabetic chronic kidney disease; N18.9 Chronic kidney disease, unspecified; N40.0 Benign prostatic hyperplasia without lower urinary tract symptoms; M25.471 Effusion, right ankle; M21.41 Flat foot [pes planus] (acquired), right foot; M21.6X1 Other acquired deformities of right foot; M25.371 Other instability, right ankle; X58.XXXA Exposure to other specified factors, initial encounter; Z20.822 Contact with and (suspected) exposure to COVID-19; E03.9 Hypothyroidism, unspecified; E78.5 Hyperlipidemia, unspecified; G47.33 Obstructive sleep apnea (adult) (pediatric); I25.10 Atherosclerotic heart disease of native coronary artery without angina pectoris; I48.91 Unspecified atrial fibrillation; Z87.891 Personal history of nicotine dependence; Z68.33 Body mass index [BMI] 33.0-33.9, adult; Z88.2 Allergy status to sulfonamides; Z88.8 Allergy status to other drugs, medicaments and biological substances; Z79.899 Other long term (current) drug therapy; Z98.42 Cataract extraction status, left eye; Z98.41 Cataract extraction status, right eye; Z95.0 Presence of cardiac pacemaker; Z71.3 Dietary counseling and surveillance; Z79.01 Long term (current) use of anticoagulants; Y93.89 Activity, other specified; Y92.89 Other specified places as the place of occurrence of the external cause; Y99.8 Other external cause status
CPT/HCPCS: 36415; 73630; 76000; 80048; 80053; 81003; 82948; 83036; 83735; 84443; 85007; 85025; 87635; 87811; 93005; 94660; 94760; 97110; 97116; 97162; 97530; 97535; A4215; A4340; A4349; A4615; A4618; A6222; A6223; A6253; A6449; A7000; C1713; C1758; C1762; G0378; J0131; J0690; J1100; J1815; J2405; J2795; J3010; J3480; J3490; J7060; J7120